=== PATIENT | female | born 1965 | race Caucasian/White ===

== ENCOUNTER → 2017-06-19 15:52 | Outpatient (CLI) | payer MEDICARE, MEDICAID, SELFPAY ==
--- NOTE | 2017-06-19 10:30 | CER_PTH ---
PATIENT: JT SCHRADER LOC: [facility] U#:[id number] AGE/SX: 60/F ROOM: RE06/19/[address]: Dr. Candido Clarke MD : [id number] BED: DIS: SPEC #: [id number] RECD: 06/19/17 15:11 STATUS: MILTON POWELLGabe #: [id number] RENITA: 06/19/17 10:[address]: Candido Clarke DEPT: SURGICAL PATHOLOGY RECD BY: Sha Benoit Tissues: Uterine cervix, NOS Procedures: Surgery Specimen Level IV HEADER OPERATION: Cervical polypectomy PRE-OP DIAGNOSIS: N84.1 TISSUE SUBMITTED: Cervical polyp MICROSCOPIC DIAGNOSIS Cervical polyp, biopsy: Detached fragments of benign squamous and endocervical tissue with mucous. No evidence of dysplasia. AM:smiley 06/21/17 MICROSCOPIC DESCRIPTION Slides are reviewed. GROSS DESCRIPTION Received in fixative is one container labeled with the patient's name and designated cervical polyp. The specimen consists of light regalado mucoid material aggregating to 3 x 1.5 x <0.1 cm. The specimen is totally submitted in one cassette. / AM:smiley 06/20/17 TC:3 CPT: 41290
[2017-06-24 12:55] LABS: HPV Reflexed? NOT INDICATED
== END ==
PROVIDERS: Visit Provider Obstetrics & Gynecology
DX: Z12.4 Encounter for screening for malignant neoplasm of cervix (principal); N84.1 Polyp of cervix uteri
CPT/HCPCS: 88175; 88305; G0145